=== PATIENT | male | born 1990 | race Caucasian/White ===

== ENCOUNTER 2019-07-03 21:50 | Emergency (ER) | payer SELFPAY | END 2019-07-03 22:47 | disposition left against medical advice (07) | LOC: M ED 21:50 | DX: F10.229 Alcohol dependence with intoxication, unspecified (principal) ==

== ENCOUNTER 2019-11-02 00:50 | Emergency (ER) | payer SELFPAY ==
[~2019-11-02] VITALS: Ht 182.9 cm; Wt 81.8 kg
[2019-11-02 01:41] VITALS: BP 136/68
== END 2019-11-02 01:55 | disposition left against medical advice (07) ==
LOC: M ED 00:50
DX: Z04.71 Encounter for examination and observation following alleged adult physical abuse (principal); F10.229 Alcohol dependence with intoxication, unspecified

== ENCOUNTER 2020-03-09 19:04 | Emergency (ER) | payer SELFPAY ==
[~2020-03-09] VITALS: Ht 188 cm; Wt 81.8 kg
[2020-03-09] MEDS ORDERED: HALOPERIDOL 5MG/ML VIAL (J1630 PER 1) IM ONE (19:30)
[2020-03-09] MEDS ORDERED: LORazepam 2 MG/ML VIAL IM ONE (19:30)
[2020-03-09 19:55] LABS: HEMATOCRIT 44.1 % (42.0-52.0); HEMOGLOBIN 15.5 g/dl (13.5-17.5); MEAN CORPUSCULAR HEMOGLOBIN 30.5 pg (27.0-33.0); MEAN CORPUSCULAR HGB CONC 35.1 g/dl (32.0-36.5); MEAN CORPUSCULAR VOLUME 86.6 fl (80.0-96.0); PLATELET COUNT, AUTOMATED 283 10^3/uL (150-450); RED BLOOD COUNT 5.09 10^6/uL (4.30-6.10)
[2020-03-09 20:40] LABS: ACETAMINOPHEN LEVEL < 2.0 UG/ML (10.0-30.0); ALBUMIN 4.4 GM/DL (3.2-5.2); ALT/SGPT 44 U/L (12-78); BILIRUBIN,DIRECT 0.2 MG/DL (0.0-0.2); BILIRUBIN,TOTAL 0.5 MG/DL (0.2-1.0); BLOOD UREA NITROGEN 11 MG/DL (7-18); CALCIUM LEVEL 8.2 MG/DL (8.5-10.1); CARBON DIOXIDE LEVEL 24 MEQ/L (21-32); CHLORIDE LEVEL 111 MEQ/L (98-107); CREATININE FOR GFR 1.14 MG/DL (0.70-1.30); ETHYL ALCOHOL (ETHANOL) 0.388 % (0.000-0.010); GLOMERULAR FILTRATION RATE > 60.0 (>60); GLUCOSE, FASTING 97 MG/DL (70-100); POTASSIUM SERUM 4.5 MEQ/L (3.5-5.1); SALICYLATE LEVEL 3.5 MG/DL (5.0-30.0); SODIUM LEVEL 146 MEQ/L (136-145); THYROID STIMULATING HORMONE 0.418 uIU/ML (0.358-3.740); TOTAL PROTEIN 8.1 GM/DL (6.4-8.2)
[2020-03-09] MEDS ORDERED: NICOTINE 21MG/24HR 1 EA TRANSDERMAL TD ONE (21:00)
[2020-03-09 21:21] LABS: AMPHETAMINES LEVEL URINE NEGATIVE (NEGATIVE); BARBITURATES URINE NEGATIVE (NEGATIVE); BENZODIAZEPINES URINE NEGATIVE (NEGATIVE); CANNABINOIDS URINE NEGATIVE (NEGATIVE); COCAINE METABOLITE URINE NEGATIVE (NEGATIVE); METHADONE URINE NEGATIVE (NEGATIVE); OPIATES URINE NEGATIVE (NEGATIVE); PHENCYCLIDINE URINE NEGATIVE (NEGATIVE)
[2020-03-10 08:44] VITALS: BP 121/91
== END 2020-03-10 08:44 | disposition home or self-care (01) ==
LOC: M ED 19:04
DX: F10.229 Alcohol dependence with intoxication, unspecified (principal); Y90.1 Blood alcohol level of 20-39 mg/100 ml
CPT/HCPCS: 36415; 80048; 80076; 80307; 84443; 85027; 96372; 99285; G0480; J1630; J2060

== ENCOUNTER 2020-07-25 22:35 | Emergency (ER) | payer MEDICAID, OTHER, SELFPAY ==
[~2020-07-25] VITALS: Ht 182.9 cm; Wt 79.5 kg
[2020-07-25] MEDS ORDERED: HALOPERIDOL 5MG/ML VIAL (J1630 PER 1) As Ordered ONE (23:01)
[2020-07-25] MEDS ORDERED: LORazepam 2 MG/ML VIAL As Ordered ONE (23:02)
[2020-07-25] MEDS ORDERED: diphenhydrAMINE 50MG/ML VIAL (J1200) As Ordered ONE (23:02)
[2020-07-25 23:23] LABS: AMPHETAMINES LEVEL URINE NEGATIVE (NEGATIVE); BARBITURATES URINE NEGATIVE (NEGATIVE); BENZODIAZEPINES URINE NEGATIVE (NEGATIVE); CANNABINOIDS URINE NEGATIVE (NEGATIVE); COCAINE METABOLITE URINE NEGATIVE (NEGATIVE); METHADONE URINE NEGATIVE (NEGATIVE); OPIATES URINE NEGATIVE (NEGATIVE); PHENCYCLIDINE URINE NEGATIVE (NEGATIVE)
[2020-07-25] MEDS ORDERED: HALOPERIDOL 5MG/ML VIAL (J1630 PER 1) IM ONE (23:30)
[2020-07-25] MEDS ORDERED: LORazepam 2 MG/ML VIAL IM ONE (23:30)
[2020-07-25] MEDS ORDERED: diphenhydrAMINE 50MG/ML VIAL (J1200) IM ONE (23:30)
[2020-07-25 23:37] LABS: BASO # 0.1 10^3/uL (0.0-0.2); BASO % 0.9 % (0.0-1.0); EOS # 0.2 10^3/uL (0.0-0.5); EOS % 1.5 % (0.0-3.0); HEMATOCRIT 47.6 % (42.0-52.0); HEMOGLOBIN 15.6 g/dl (13.5-17.5); LYMPH # 2.6 10^3/uL (1.5-5.0); LYMPH % 22.2 % (24.0-44.0); MEAN CORPUSCULAR HEMOGLOBIN 29.3 pg (27.0-33.0); MEAN CORPUSCULAR HGB CONC 32.8 g/dl (32.0-36.5); MEAN CORPUSCULAR VOLUME 89.3 fl (80.0-96.0); MONO # 0.4 10^3/uL (0.0-0.8); MONO % 3.2 % (0.0-5.0); NEUTROPHILS # 8.3 10^3/uL (1.5-8.5); NEUTROPHILS % 71.1 % (36.0-66.0); PLATELET COUNT, AUTOMATED 298 10^3/uL (150-450); RED BLOOD COUNT 5.33 10^6/uL (4.30-6.10); WHITE BLOOD COUNT 11.7 10^3/uL (4.0-10.0)
[2020-07-26 00:11] LABS: ALT/SGPT 24 U/L (12-78); BILIRUBIN,DIRECT 0.1 MG/DL (0.0-0.2); BILIRUBIN,TOTAL 0.2 MG/DL (0.2-1.0); BLOOD UREA NITROGEN 11 MG/DL (7-18); CALCIUM LEVEL 9.2 MG/DL (8.5-10.1); CARBON DIOXIDE LEVEL 29 MEQ/L (21-32); CHLORIDE LEVEL 108 MEQ/L (98-107); CREATININE FOR GFR 0.94 MG/DL (0.70-1.30); GLOMERULAR FILTRATION RATE > 60.0 (>60); GLUCOSE, FASTING 99 MG/DL (70-100); SODIUM LEVEL 143 MEQ/L (136-145); TOTAL PROTEIN 7.6 GM/DL (6.4-8.2)
[2020-07-26 00:29] LABS: ETHYL ALCOHOL (ETHANOL) 0.331 % (0.000-0.010)
--- NOTE | 2020-07-26 01:41 | REPVR ---
PROCEDURE INFORMATION: Exam: CT Head Without Contrast Exam date and time: 07/26/2020 1:06 AM Age: 30 years old Clinical indication: Rule out bleeding TECHNIQUE: Imaging protocol: Computed tomography of the head without contrast. Radiation optimization: All CT scans at this facility use at least one of these dose optimization techniques: automated exposure control; mA and/or kV adjustment per patient size (includes targeted exams where dose is matched to clinical indication); or iterative reconstruction. COMPARISON: No relevant prior studies available. FINDINGS: Limitations: The inferior aspect of the brain was not fully imaged and motion artifact degrades the image quality. Brain: There is a small acute subdural hematoma along the left temporal region, which measures up to 3 mm in thickness (images 3-4 of the axial series 201 and images 18-22 of the coronal series 203). There is a small acute left parafalcine subdural hematoma along the anterior falx, which measures 2 mm in thickness (image 4 of the axial series 201). There are subtle acute hemorrhagic contusions of the anterior portions of both frontal lobes (images 2-6 of the axial series 201). There is subtle high density within the cortical sulci of the right frontal lobe, which is compatible with a trace amount of acute subarachnoid hemorrhage (image 12 of the axial series 201). There is no mass effect, midline shift, or occult herniation. Cerebral ventricles: No ventriculomegaly. Bones/joints: No skull fracture is identified. The inferior aspect of the skull was not imaged. Paranasal sinuses: The imaged portion of the frontal sinuses are clear. The sinuses were not fully imaged. Mastoid air cells: Not imaged. Soft tissues: There is a small subgaleal hematoma along the posterosuperior aspect of the head (image 30 of the coronal series 203). IMPRESSION: 1. Small acute subdural hematoma along the left temporal region, which measures up to 3 mm in thickness. 2. Small acute left parafalcine subdural hematoma along the anterior falx, which measures 2 mm in thickness. 3. Mild acute hemorrhagic contusions of the anterior portions of both frontal lobes and a trace amount of acute subarachnoid hemorrhage in the cortical sulci of the right frontal lobe. 4. Small subgaleal hematoma along the posterosuperior aspect of the head Electronically signed by: Gilbert Napoles On 07/26/2020 01:41:10 AM
[2020-07-26 03:30] VITALS: BP 87/51
[2020-07-26] MEDS ORDERED: NS 1,000 ML IV ONE (04:00)
--- NOTE | 2020-07-26 22:44 | ECGEPIP ---
[facility] Test Date: 2020-07-25 Pat Name: MURALI LANTIGUA Department: Room: - Gender: Male Windows Server Support Technician: checo : 1990 Requested By: AG DAS Order Number: [id number] Reading MD: Madhav Gee Measurements Intervals [place] Rate: 108 P: 65 ID: [id number] QRS: 55 QRSD: 94 T: 36 QT: 327 QTc: 440 Interpretive Statements SINUS TACHYCARDIA POSSIBLE LEFT ATRIAL ENLARGEMENT ABNORMAL RHYTHM ECG No prior tracing in the system Electronically Signed on 07-26-2020 22:43:49 EDT by Madhav Gee
== END 2020-07-26 04:21 | disposition short-term general hospital (02) ==
LOC: M ED 22:35
DX: S06.5X9A Traumatic subdural hemorrhage with loss of consciousness of unspecified duration, initial encounter (principal); S06.6X9A Traumatic subarachnoid hemorrhage with loss of consciousness of unspecified duration, initial encounter; Y92.9 Unspecified place or not applicable; Y93.9 Activity, unspecified; Y99.9 Unspecified external cause status; R00.0 Tachycardia, unspecified; F10.120 Alcohol abuse with intoxication, uncomplicated
CPT/HCPCS: 70450; 80048; 80076; 80307; 85025; 93005; 96372; 99285; G0480; J1200; J1630; J2060

== ENCOUNTER 2020-08-14 02:09 | Emergency (ER) | payer MEDICAID, SELFPAY ==
[~2020-08-14] VITALS: Ht 182.9 cm; Wt 78.2 kg
[2020-08-14] MEDS ORDERED: HALOPERIDOL 5MG/ML VIAL (J1630 PER 1) As Ordered ONE (02:25)
[2020-08-14] MEDS ORDERED: LORazepam 2 MG/ML VIAL As Ordered ONE (02:26)
[2020-08-14] MEDS ORDERED: diphenhydrAMINE 50MG/ML VIAL (J1200) As Ordered ONE (02:26)
[2020-08-14] MEDS ORDERED: HALOPERIDOL 5MG/ML VIAL (J1630 PER 1) IM ONE (02:30)
[2020-08-14] MEDS ORDERED: diphenhydrAMINE 50MG/ML VIAL (J1200) IM ONE (02:30)
[2020-08-14] MEDS ORDERED: LORazepam 2 MG/ML VIAL IM ONE (02:30)
[2020-08-14 03:16] LABS: HEMATOCRIT 47.9 % (42.0-52.0); HEMOGLOBIN 15.9 g/dl (13.5-17.5); MEAN CORPUSCULAR HEMOGLOBIN 28.9 pg (27.0-33.0); MEAN CORPUSCULAR HGB CONC 33.2 g/dl (32.0-36.5); MEAN CORPUSCULAR VOLUME 86.9 fl (80.0-96.0); PLATELET COUNT, AUTOMATED 246 10^3/uL (150-450); RED BLOOD COUNT 5.51 10^6/uL (4.30-6.10)
[2020-08-14] MEDS ORDERED: NS 1,000 ML IV ONE ×2 (03:30→05:15)
[2020-08-14 03:50] LABS: ALBUMIN 4.5 GM/DL (3.2-5.2); ALT/SGPT 29 U/L (12-78); BILIRUBIN,TOTAL 0.4 MG/DL (0.2-1.0); BLOOD UREA NITROGEN 7 MG/DL (7-18); CALCIUM LEVEL 8.7 MG/DL (8.5-10.1); CARBON DIOXIDE LEVEL 23 MEQ/L (21-32); CHLORIDE LEVEL 107 MEQ/L (98-107); CREATININE FOR GFR 0.81 MG/DL (0.70-1.30); ETHYL ALCOHOL (ETHANOL) 0.403 % (0.000-0.010); GLOMERULAR FILTRATION RATE > 60.0 (>60); GLUCOSE, FASTING 102 MG/DL (70-100); POTASSIUM SERUM 3.6 MEQ/L (3.5-5.1); SODIUM LEVEL 142 MEQ/L (136-145); TOTAL PROTEIN 8.1 GM/DL (6.4-8.2)
--- NOTE | 2020-08-14 04:26 | REPVR ---
PROCEDURE INFORMATION: Exam: CT Head Without Contrast Exam date and time: 08/14/2020 2:25 AM Age: 30 years old Clinical indication: Altered mental status/memory loss; Confusion or disorientation; Additional info: Altered mental, h/o intracranial bleed this month TECHNIQUE: Imaging protocol: Computed tomography of the head without contrast. Radiation optimization: All CT scans at this facility use at least one of these dose optimization techniques: automated exposure control; mA and/or kV adjustment per patient size (includes targeted exams where dose is matched to clinical indication); or iterative reconstruction. COMPARISON: CT Head without contrast 07/26/2020 12:44 AM FINDINGS: Brain: Normal. No hemorrhage. Unremarkable white matter. No mass effect. Cerebral ventricles: No ventriculomegaly. Bones/joints: Unremarkable. No acute fracture. Paranasal sinuses: Visualized sinuses are unremarkable. No fluid levels. Mastoid air cells: Visualized mastoid air cells are well aerated. Soft tissues: Unremarkable. IMPRESSION: Negative noncontrast head CT with resolution of hemorrhage since 07/26/2020. Electronically signed by: Guicho Crawford On 08/14/2020 04:26:25 AM
[2020-08-14 07:09] LABS: ACETAMINOPHEN LEVEL < 2.0 UG/ML (10.0-30.0); SALICYLATE LEVEL 4.7 MG/DL (5.0-30.0); THYROID STIMULATING HORMONE 0.484 uIU/ML (0.358-3.740)
[2020-08-14] MEDS ORDERED: FOLIC ACID 1 MG TAB PO SCH (09:00)
[2020-08-14] MEDS ORDERED: MULTIVITAMINS/MINERALS THERAP 1 TAB PO SCH (09:00)
[2020-08-14 09:50] LABS: AMPHETAMINES URINE REFLEX NEGATIVE (NEGATIVE); BARBITURATES URINE REFLEX NEGATIVE (NEGATIVE); BENZODIAZEPINES URINE REFLEX NEGATIVE (NEGATIVE); COCAINE METABOLITE URINE REFLE NEGATIVE (NEGATIVE); METHADONE URINE REFLEX NEGATIVE (NEGATIVE); OPIATES URINE REFLEX NEGATIVE (NEGATIVE); PHENCYCLIDINE URINE REFLEX NEGATIVE (NEGATIVE)
[2020-08-14 10:48] LABS: CANNABINOIDS URINE REFLEX PENDING CONFIRMATION (NEGATIVE)
[2020-08-14] MEDS ORDERED: LORazepam 2 MG TAB PO PRN (11:15)
[2020-08-14] MEDS: THIAMINE 100 MG TAB PO SCH ×2 (13:31→20:59)
[2020-08-15 01:20] VITALS: BP 162/82
--- NOTE | 2020-08-15 21:47 | ECGEPIP ---
[facility] - ED Test Date: 2020-08-14 Pat Name: MURALI LANTIGUA Department: Room: - Gender: Male Human Resources Assistant: : 1990 Requested By: ANTON DAS Order Number: [id number] Reading MD: Anton Kelly Measurements Intervals [place] Rate: 91 P: 76 MA: 120 QRS: 69 QRSD: 94 T: 63 QT: 350 QTc: 431 Interpretive Statements SINUS RHYTHM WITH MARKED SINUS ARRHYTHMIA POSSIBLE LEFT ATRIAL ENLARGEMENT INCOMPLETE RIGHT BUNDLE BRANCH BLOCK SIMILAR TO 07/25/20 Electronically Signed on 08-15-2020 21:47:16 EDT by Anton Kelly
[2020-08-18 01:21] LABS: Cannabinoid Positive (.); GC Carboxy THC 86 ng/mL (Cutoff=10)
== END 2020-08-15 01:23 | disposition short-term general hospital (02) ==
LOC: M ED 02:09
DX: R45.850 Homicidal ideations (principal); R45.851 Suicidal ideations; F10.10 Alcohol abuse, uncomplicated; Y90.2 Blood alcohol level of 40-59 mg/100 ml
CPT/HCPCS: 70450; 80053; 80307; 84443; 85027; 93005; 96361; 96372; 99285; G0480; J1200; J1630; J2060; U0002

== ENCOUNTER 2020-10-29 09:01 | Inpatient (IN) | payer MEDICAID, OTHER ==
[~2020-10-29] VITALS: Ht 182.9 cm; Wt 79.5 kg
[2020-10-29 10:12] LABS: BASO # 0.1 10^3/uL (0.0-0.2); BASO % 0.8 % (0.0-1.0); EOS # 0.1 10^3/uL (0.0-0.5); EOS % 0.7 % (0.0-3.0); HEMATOCRIT 46.4 % (42.0-52.0); HEMOGLOBIN 15.5 g/dl (13.5-17.5); LYMPH # 1.9 10^3/uL (1.5-5.0); LYMPH % 16.4 % (24.0-44.0); MEAN CORPUSCULAR HEMOGLOBIN 29.9 pg (27.0-33.0); MEAN CORPUSCULAR HGB CONC 33.4 g/dl (32.0-36.5); MEAN CORPUSCULAR VOLUME 89.6 fl (80.0-96.0); MONO # 1.1 10^3/uL (0.0-0.8); MONO % 9.6 % (0.0-5.0); NEUTROPHILS # 8.5 10^3/uL (1.5-8.5); PLATELET COUNT, AUTOMATED 286 10^3/uL (150-450); RED BLOOD COUNT 5.18 10^6/uL (4.30-6.10); WHITE BLOOD COUNT 11.8 10^3/uL (4.0-10.0)
[2020-10-29 10:52] LABS: AMPHETAMINES LEVEL URINE NEGATIVE (NEGATIVE); BARBITURATES URINE NEGATIVE (NEGATIVE); BENZODIAZEPINES URINE NEGATIVE (NEGATIVE); CANNABINOIDS URINE NEGATIVE (NEGATIVE); COCAINE METABOLITE URINE NEGATIVE (NEGATIVE); METHADONE URINE NEGATIVE (NEGATIVE); OPIATES URINE NEGATIVE (NEGATIVE); PHENCYCLIDINE URINE NEGATIVE (NEGATIVE)
[2020-10-29 11:07] LABS: ACETAMINOPHEN LEVEL < 2.0 UG/ML (10.0-30.0); ALBUMIN 4.5 GM/DL (3.2-5.2); ALT/SGPT 32 U/L (12-78); BILIRUBIN,TOTAL 0.8 MG/DL (0.2-1.0); BLOOD UREA NITROGEN 32 MG/DL (7-18); CALCIUM LEVEL 9.7 MG/DL (8.5-10.1); CARBON DIOXIDE LEVEL 23 MEQ/L (21-32); CHLORIDE LEVEL 101 MEQ/L (98-107); CREATININE FOR GFR 2.17 MG/DL (0.70-1.30); GLOMERULAR FILTRATION RATE 37.9 (>60); GLUCOSE, FASTING 77 MG/DL (70-100); POTASSIUM SERUM 4.3 MEQ/L (3.5-5.1); SALICYLATE LEVEL 4.3 MG/DL (5.0-30.0); SODIUM LEVEL 135 MEQ/L (136-145); TOTAL PROTEIN 8.2 GM/DL (6.4-8.2)
--- NOTE | 2020-10-29 12:02 | REPVR ---
PROCEDURE INFORMATION: Exam: CT Head Without Contrast Exam date and time: 10/29/2020 11:42 AM Age: 30 years old Clinical indication: Psychosis or psychotic disorder; Unspecified TECHNIQUE: Imaging protocol: Computed tomography of the head without contrast. Radiation optimization: All CT scans at this facility use at least one of these dose optimization techniques: automated exposure control; mA and/or kV adjustment per patient size (includes targeted exams where dose is matched to clinical indication); or iterative reconstruction. COMPARISON: CT Head without contrast 08/14/2020 3:57 AM FINDINGS: Brain: Normal. No hemorrhage. Unremarkable white matter. No mass effect. Cerebral ventricles: No ventriculomegaly. Bones/joints: Unremarkable. No acute fracture. Paranasal sinuses: Visualized sinuses are unremarkable. No fluid levels. Mastoid air cells: Visualized mastoid air cells are well aerated. Soft tissues: Unremarkable. IMPRESSION: No acute intracranial abnormality. Electronically signed by: Karina Power On 10/29/2020 12:02:09 PM
[2020-10-29 12:53] LABS: ETHYL ALCOHOL (ETHANOL) < 0.003 % (0.000-0.010)
[2020-10-29] MEDS ORDERED: SULF1TAB93 PO (14:21)
[2020-10-29 15:38] LABS: APPEARANCE, URINE MANUAL HAZY (CLEAR); BILIRUBIN, URINE MANUAL NEGATIVE (NEGATIVE); BLOOD URINE MANUAL TRACE (NEGATIVE); COLOR, URINE MANUAL YELLOW (YELLOW); GLUCOSE, URINE (UA) MANUAL NEGATIVE (NEGATIVE); KETONE, URINE MANUAL 1+ mg/dL (NEGATIVE); LEUKOCYTE ESTERASE, URINE MAN TRACE (NEGATIVE); NITRITE, URINE MANUAL NEGATIVE (NEGATIVE); PROTEIN, URINE MANUAL TRACE mg/dL (NEGATIVE); UROBILINOGEN, URINE MANUAL NORMAL (NORMAL)
[2020-10-29 15:48] LABS: POTASSIUM RANDOM URINE 48.4 MEQ/L
[2020-10-29 16:00] LABS: WBC, URINE TNTC /hpf (0-3)
[2020-10-29 16:01] LABS: BACTERIA, URINE SMALL AMOUNT; MUCUS, URINE LARGE AMOUNT (NEGATIVE); SQUAMOUS EPITHELIAL CELL URINE SMALL AMOUNT /hpf (SMALL AMT); TRANSITIONAL EPI CELLS, URINE SMALL AMOUNT /hpf
[2020-10-29] MEDS ORDERED: BACTRIM 160MG/800MG DS TAB PO ONE (17:15)
[2020-10-29] MEDS ORDERED: DOXYCYCLINE HYCLATE 100MG TABLET PO ONE (17:15)
[2020-10-30] MEDS ORDERED: DOXYCYCLINE HYCLATE 100MG TABLET PO ONE (09:00)
[2020-10-30 14:44] LABS: CHLAMYDIA DNA AMPLIFICATION NEGATIVE (NEGATIVE); GC DNA AMPLIFICATION NEGATIVE (NEGATIVE)
[2020-10-30] MEDS ORDERED: MAALOX 30 ML SUSP *UDC PO PRN (15:00)
[2020-10-30] MEDS ORDERED: ACETAMINOPHEN TAB 650MG DOSE (2X325MG) PO PRN (15:00)
[2020-10-30] MEDS ORDERED: MOM 30ML SUSPENSION UDC PO PRN (15:00)
[2020-10-30] MEDS: traZODone 50 MG TAB PO PRN (23:07)
[2020-10-30] MEDS: OLANZapine ORAL DISINTEGRATING TAB 5MG PO PRN (23:07)
[2020-10-31 00:18] VITALS: BP 118/69
[2020-10-31] MEDS: CLINDAMYCIN 150MG CAPSULE PO SCH ×2 (16:00→21:51)
[2020-10-31 17:12] LABS: HEMATOCRIT 44.5 % (42.0-52.0); HEMOGLOBIN 14.3 g/dl (13.5-17.5); MEAN CORPUSCULAR HGB CONC 32.1 g/dl (32.0-36.5); MEAN CORPUSCULAR VOLUME 93.5 fl (80.0-96.0); PLATELET COUNT, AUTOMATED 225 10^3/uL (150-450); RED BLOOD COUNT 4.76 10^6/uL (4.30-6.10); WHITE BLOOD COUNT 7.7 10^3/uL (4.0-10.0)
--- NOTE | 2020-10-31 17:22 | HPEPDOC ---
[facility] Medical History & Physical Date of Admission Oct 30, 2020 Date of Service: Oct 31, 2020 History and Physical CHIEF COMPLAINT: Psychosis HISTORY OF PRESENT ILLNESS: Mr. Grant is a 30 year old male with history of recreational drug use who is in the inpatient mental health unit for psychosis. He had called the police several times that there was someone trying to break into his house and put him in the bathroom. Police arrived and there was no one trying to break in. Patient was sure he saw people breaking in and doesn't know why the police did not see them. He was brought to the ED for evaluation. Patient's mother believes that he was using drugs again. When I spoke to him, he was feeling well. Denies fever, chills, chest pain, dyspnea, cough, or dysuria. He is COVID positive, but asymptomatic. He does have an abscess on the back right side of neck. He was given Bactrim which helped make it shrink per patient. Labs demonstrate LANCE which is most likely from the Bactrim. It is about the size of a golf ball and tender. It is fluctuant. PAST MEDICAL HISTORY: 1. Recreational drug use 2. Tobacco use PAST SURGICAL HISTORY: Denies any past surgeries SOCIAL HISTORY: Tobacco use: Current smoker, about 10 years, 1/2 ppd to 1 ppd ETOH: Social drinker, last drink a few weeks ago Illicit drug use: Used Ecstasy before being admitted to [facility] FAMILY HISTORY: Denies past medical history in parents. Reports parents are healthy ALLERGIES: Please see below. REVIEW OF SYSTEMS: CONSTITUTIONAL: Denies any fever or chills. Denies lightheadedness or dizziness. ENT: Denies sore throat. RESPIRATORY: Denies shortness of breath. Denies cough. CARDIOVASCULAR: Denies chest pain. GASTROINTESTINAL: Denies abdominal pain. Denies diarrhea. Denies constipation GENITOURINARY: Denies dysuria. CUTANEOUS: Reports abscess in the back of the right neck. Initially a pimple, but grew MUSCULOSKELETAL: Denies muscle weakness. NEUROLOGICAL: Denies paresthesias. PSYCHOLOGICAL: Reports anxiety. HOME MEDICATIONS: Please see below. PHYSICAL EXAMINATION: VITAL SIGNS: Temperature 98.2, pulse 88, respiratory rate 18, blood pressure 120/68, pulse oximetry 97 % on room air. GENERAL: Comfortable, in no apparent distress. HEENT: EOMI, sclera clear. NECK: Back of right neck there is an abscess that is fluctuant. About the size of a golf ball RESPIRATORY: Lungs clear to auscultation bilaterally, no rales, wheeze or rhonchi. CARDIOVASCULAR: Regular rate and rhythm. ABDOMEN: Soft, nontender, no guarding or rebound tenderness. Normal bowel sounds. MUSCLE SKELETAL: Muscle strength 5/5 in all extremities. NEUROLOGICAL: CN 312 grossly intact, no focal deficits noted. PSYCHOLOGICAL: Normal mood and affect LABORATORY DATA: See below. IMAGING: CT head No acute intracranial abnormality. ASSESSMENT and PLAN: 1. Psychosis -Being managed in the inpatient mental health unit 2. Skin abscess on right back neck -Was improving on Bactrim, but stopped due to LANCE -Will order ultrasound abscess drain and culture and gram stain -Will start patient on clindamycin 3. LANCE -Most likely AIN from Bactrim -Discontinued Bactrim -Encourage PO intake of fluids and recheck BMP 4. COVID infection -No symptoms -Will check inflammatory markers tomorrow morning with routine labs Vital Signs Vital Signs Date Time Temp Pulse Resp B/P (MAP) Pulse Ox O2 Delivery O2 Flow Rate FiO2 10/31/20 09:54 Room Air 10/31/20 00:18 98.7 123 16 118/69 (85) 10/30/20 20:31 97 Laboratory Data Microbiology Microbiology 10/29/20 Respiratory Virus Panel (PCR) (LIZZIE) - Final, Complete SARS-CoV-2 (COVID 19) Home Medications Scheduled Sulfamethoxazole/Trimethoprim (Sulfamethoxazole-Tmp Ds Tablet) 1 Each Tablet, 1 TAB PO BID FILLED 10/26/20 FOR 10 DAYS Allergies Coded Allergies: No Known Allergies (Unverified , 07/03/19) A-FIB/CHADSVASC A-FIB History Current/History of A-Fib/PAF?: No EDWIN BEARD DO Oct 31, 2020 17:21
[2020-10-31 17:45] LABS: BLOOD UREA NITROGEN 26 MG/DL (7-18); CALCIUM LEVEL 8.8 MG/DL (8.5-10.1); CARBON DIOXIDE LEVEL 29 MEQ/L (21-32); CHLORIDE LEVEL 106 MEQ/L (98-107); CREATININE FOR GFR 1.01 MG/DL (0.70-1.30); GLOMERULAR FILTRATION RATE > 60.0 (>60); GLUCOSE, FASTING 95 MG/DL (70-100); POTASSIUM SERUM 4.9 MEQ/L (3.5-5.1); SODIUM LEVEL 140 MEQ/L (136-145)
[2020-10-31 18:13] VITALS: BP 120/71
[2020-10-31] MEDS: traZODone 50 MG TAB PO PRN (21:50)
[2020-10-31] MEDS: OLANZapine ORAL DISINTEGRATING TAB 5MG PO PRN (21:51)
[2020-10-31] MEDS: LACTOBACILLUS ACIDOPHILUS CAP (BACID) PO SCH (21:53)
[2020-10-31 22:00] VITALS: BP 133/72
[2020-11-01] MEDS: LACTOBACILLUS ACIDOPHILUS CAP (BACID) PO SCH ×2 (09:41→17:09)
[2020-11-01] MEDS: CLINDAMYCIN 150MG CAPSULE PO SCH ×3 (09:41→21:12)
--- NOTE | 2020-11-01 15:45 | WAPSY-INT ---
[facility] PSYCH INITIAL ASSESSMENT DATE OF ADMISSION: 10/30/2020 VITAL SIGNS: Blood pressure 120/68, pulse 88, temperature 98.2. This is a video assessment. He has been admitted to the inpatient psychiatry unit. He is waiting to go upstairs to the unit. I saw him when he was in the ER. CHIEF COMPLAINT: Feels sick. SUBJECTIVE: He is 30 years old, lives with his mother. Has no children as far as I am aware. He says has been doing okay and that things hit bottom here, is not quite sure why. Says has been doing well. The history, when he was first assessed, indicates he was brought by the police. He was convinced his house was being locked and that he was locked in the room by strangers. He suggested the police did not believe him and they brought him here. He had apparently called the police and said that occasions within the last 24 hours or so, informing them that someone had broken into the house. Police had responded. He remained adamant that this was taking place. His mother had suggested there was no one there. Also suggested that police did not believe that there was anyone who had broken in and placed him in the bathroom. He suggested he knew that there were people there and was puzzled by the police, who did not believe him. Denies any drug use, but later suggested if he had used drugs, could easily. Unclear what, possibly Candice, possibly ecstasy. Acknowledges he did "the other day," and he was brought to the ER. Has had a prior history of substance abuse, details unknown. Apparently his approximately a year and a half ago from a drug overdose. ER report suggests mother believes the patient has been using drugs again, does not think that he has been drinking. He has been seen peeking out the windows during the night, looking in her bedroom door and a couple of weeks ago had called the police with similar concerns. He, at some point, had been referred to [facility], was unclear if he had gone over there or not. Was seen in the ER last July, alcohol misuse. He had called the police at that time indicating he was going to shoot the place up and everyone there. He was found to be using alcohol after a disagreement with a girlfriend. He was transferred to [facility] in [place] at that time. SUBSTANCE ABUSE HISTORY: As indicated above. MEDICAL HISTORY: Unclear, with no acute medical issues. He is COVID positive. SOCIAL HISTORY: Lives with his mother. Apparently, his a year and a half ago. MENTAL STATUS EXAMINATION: Neat, but guarded. No agitation. No psychomotor retardation. Answers questions briefly, logically, coherently. Affect restricted in range, mostly active. Denies suicidal thoughts or intents. No homicidal ideas or intents. Has been paranoid, deluded. Alert, Oriented. Does not appear to be internally preoccupied. Judgment, insight are poor. ASSESSMENT: 1. Unspecified psychotic disorder. 2. Consider drug-induced psychotic disorder. 3. History of alcohol misuse. 4. Non adherence to treatment recommendations. 5. Consider other primary psychotic disorder. Has been paranoid lately, the last couple of weeks or so, possibly secondary to drug use. Has history of alcohol use, nonadherent to treatment recommendations. He is COVID positive and one needs to consider the possibility that there is psychosis secondary to it, though unclear. PLAN: He is admitted to inpatient psychiatry unit, placed on relevant precautions. We will look at obtaining collateral information. He will be seen by the department of medicine hospitalist. Will start him on an antipsychotic if indicated, particularly after observation. He is to be discharged with followup once he is stable. Will need referral to a substance abuse facility. I anticipate a five to seven day stay. We will be following the COVID protocol. Assessment took 30 minutes. TAWNY
--- NOTE | 2020-11-01 16:26 | WAPSY-FUP ---
[facility] PSYCH FOLLOWUP ASSESSMENT DATE OF ADMISSION: 10/30/2020 VITALS SIGNS: Blood pressure 118/69, pulse 123, temperature 98.7. CHIEF COMPLAINT: Says feels okay. SUBJECTIVE: Seen for followup in the presence of staff. I had seen him initially when he was in the emergency room via video. There are concerns regarding COVID. He is COVID positive. He is seen for followup on video as well. Says has been okay and that he slept. Does not offer much else. Says mood is good, as is appetite. Denies any suicidal thoughts or intents. Says is not sure why he was brought to hospital, and that things have been okay with him. Says has not had any contact with his mother. Also indicates she may be busy, including when we asked if we could talk to her to obtain collateral information. MENTAL STATUS EXAMINATION: He is neat. He is guarded. No overt agitation. Displays mild irritability. No psychomotor retardation. Answers questions briefly, logically, coherently. Denies suicidal thoughts or intents or homicidal ideas or intents. Does not appear internally preoccupied. At present, no overt delusions elicited. Cognition grossly intact. Judgment and insight remain compromised. ASSESSMENT: 1. Unspecified psychotic disorder. 2. Consider substance-induced psychotic disorder. Has poor insight. There has been a history of his being paranoid recently, calling the police on several occasions, convinced people had broken into his house. He does not confirm nor deny that, but does not acknowledge these difficulties, either. Judgment and insight remain poor, and this compromises his ability to maintain his safety. PLAN: Continue current care and observations. I would suggest offering him anti-agitation medications, says does not wish to be on medicine, he declines that. He does say he took it last night for sleep and it made him drowsy. He is also taking olanzapine at this time as well. Attempted obtaining collateral information from patient's mother should the patient be willing. The longer he away from his last drug use, the more likely the psychosis may clear. This may require a bit of time. Lashed out at being hospitalized as discussed. He does not accept it. Further recommendations will be made depending on the clinical picture. Will hold off on prescribing scheduled antipsychotic.
[2020-11-01] MEDS: traZODone 50 MG TAB PO PRN (21:21)
[2020-11-01] MEDS: OLANZapine ORAL DISINTEGRATING TAB 5MG PO PRN (21:21)
[2020-11-02 07:11] VITALS: BP 117/65
[2020-11-02] MEDS: LACTOBACILLUS ACIDOPHILUS CAP (BACID) PO SCH (08:44)
[2020-11-02] MEDS: CLINDAMYCIN 150MG CAPSULE PO SCH ×2 (08:45→16:24)
--- NOTE | 2020-11-02 12:57 | WAPSY-FUP ---
[facility] PSYCH FOLLOWUP ASSESSMENT DATE OF ADMISSION: 10/30/2020 This is a video assessment. CHIEF COMPLAINT: He says he is okay. SUBJECTIVE: Seen for follow up. Indicates he is okay and that the night went well. He has been eating a bit. Feels good, but does not like the fact that he is in hospital. Says remembers the police coming over when they did and that they had come over a little while prior to that as well, says it was for "the same reason," but did not elaborate. Denies wanting to hurt himself. Acknowledges using drugs. He did not go into details but did suggest that it was not alcohol, no benzodiazepines. Says he does not have a drug of choice as such, but implies most were related to amphetamines. Denies ever having used any intravenous drugs. He also indicates that he had been free of drugs for about five years or so, relapsed after about a month or so after his , a year and a half ago. Acknowledges that it was partly grieving for her. His mother has had concerns regarding his drug use, with various people being around the house and being brought there by him and using. He did not expand on that or even acknowledge that. Says he has been looking for an outpatient drug use facility, says had called the [facility] office about it over the last week or two. Also says is prepared to seek outpatient care, but would not be willing to go for inpatient rehabilitation at this point. MENTAL STATUS EXAMINATION: He is neat. He is guarded, but less so than he has been in the last couple of days. No agitation. No psychomotor retardation. Improved eye contact. Affect restricted with little reactivity, but does not appear as intense it has in the last couple of days. No evidence of any auditory or visual hallucinations, does not appear to be internally preoccupied. Unclear if any delusions, but none that appear overtly. Judgment and insight remain compromised, but possibly a bit improved. ASSESSMENT: 1. Substance-induced psychotic disorder. 2. Methamphetamine use disorder, most likely. A bit more amenable to conversation, less guarded, less paranoid and his judgment has improved, but remains questionable. The same goes with insight. It is quite possible the psychosis is mostly drug induced, amphetamine induced. It is also of note that he is COVID positive. COVID related psychosis may be a possibility, it cannot be completely ruled out. PLAN: Continue current care, observations. Would hold off on starting him on a scheduled psychotropic, given these concerns. May benefit from medication as needed. I would recommend that the patient be considered for rehabilitation, substance use, and at present, he agrees to considering outpatient rehabilitation. May require inpatient rehabilitation. That would depend on the clinical picture. He will be seeing the assigned clinician tomorrow, as well as the planner intern so discharge planning can be started, with an aim of his being referred to a substance abuse facility. His COVID-related status, the infection, also needs to be taken into consideration. It is also preferable he see a psychiatrist upon discharge. He is aware that he is going to be here for at least the next day or so. Further recommendations will be made depending on the clinical picture.
[2020-11-02] MEDS ORDERED: CLIN150C15 PO (13:49)
[2020-11-02] MEDS ORDERED: RISATAB3 PO (13:49)
--- NOTE | 2020-11-04 11:57 | MHDS ---
FORMER[facility] DISCHARGE SUMMARY DATE OF ADMISSION: 10/30/2020 at 1457 DATE OF DISCHARGE: 11/02/2020 at 1419 PATIENT STATUS: Admitted inpatient to inpatient mental health. PROVIDER: Amrita Quezada, nurse practitioner of psychiatric ATTENDING PSYCHIATRIC PHYSICIAN: Jessica Vega DISCHARGE DIAGNOSES: 1. Unspecified schizophrenia and other psychotic disorders. 2. Rule out drug-induced psychotic disorder. 3. History of alcohol use disorder. 4. No adherence of substance abuse treatment and outpatient mental health treatment. REASON FOR ADMISSION: Patient is a single, unemployed, domicile male who was admitted to inpatient mental health unit on a 9.39 legal status after he had called the police numerous times reporting that someone was breaking into his home. He had apparently called the police and said that within the past 24 hours that someone was continuing breaking into his home. The police had responded numerous times. He was adamant that this was taking place. His mother had suggested that there was no one there and that the police did not believe him when he was presenting all of the evidence that people were trying to break into his home. He states that he does not feel safe at home, and he did admit to prior substance abuse. According to his mother, she believes that the patient is engaged in doing drugs again. She states that the patient lives in the same home as she does. She does not believe that he was drinking that night that he came in. She states that he was peaking out of the windows that night, looking into her bedroom door at times. A couple weeks ago he had called the police with the same complaint that somebody was trying to break into the house. He and his mother both report that his 1-1/2 years ago from a recreational drug overdose. Mom reports that patient was referred to [facility] but has not followed up with them or anyone else. CONSULTANTS INVOLVED: See medical history and physical by hospitalist. TREATMENT AND PROGRESS ON THE UNIT: Patient was admitted to inpatient mental health on a 9.39 legal status. He was afforded the following treatment modalities: 1. Individual therapy. 2. Group therapy. 3. Medications management. 4. Milieu therapy. 5. Safe environment. HOSPITAL COURSE: Patient admitted to inpatient mental health. Was observed for any continued psychiatric and psychotic symptoms. He was COVID positive and given a private room. He was educated on the need for strict policies regarding his care, for example, staff wearing personal protective equipment, face masks, multani, and gloves. DISCHARGE ASSESSMENT: In today's interview, patient is requesting to be discharged to home. He denies depression, suicidal ideation, homicidal ideation, and denies psychotic symptoms. He is not observed with any depression, anxiety, any psychotic symptoms, for example, paranoia, flight of ideas, francisco javier, delusions, bizarre thinking, grandiosity, or impaired thinking. At this time he does not meet criteria to be admitted to an involuntary status, and he refused a voluntary admission. He states that he was using Candice, and that he no longer believes that people were trying to break into his house. MENTAL STATUS EXAMINATION: On discharge, patient is a 30-year-old single, unemployed, domicile male, brought in by police after he made numerous calls to them reporting people breaking into his house. He admits today he was using MDMA/Candice. He is dressed appropriately in hospital scrubs. His hair is disheveled. His hygiene and grooming are fair. Build is thin. His demeanor is guarded. Eye contact is intermittent. His activity is within normal limits. Behavior is cooperative. Speech is regular rate, rhythm, and volume. His mood was somewhat dismissive but mostly euthymic. Affect is flat. Thought process is logical and linear. Thought content: He denies depression, suicidal ideation, homicidal ideation, auditory, visual, or tactile hallucinations. Denies paranoia. Mildly guarded. He is not observed with any aggression, not observed to be responding to internal stimuli. He has no impairment of his cognition. His intelligence is average. He is alert, awake, and oriented times three. His insight and judgment are fair. Again, he is not observed with and denies psychosis. DISCHARGE MEDICATIONS: See medication reconciliation. PLAN AND FOLLOWUP ARRANGEMENTS: [facility]. The amount of time spent in the coordination of care for this patient was approximately 25 minutes. TAWNY
== END 2020-11-02 16:54 | disposition home or self-care (01) | DRG 750 ==
LOC: M ED 09:01 → EEVIPCON 10-30 14:57 → M ED INP 10-30 14:57 → M PSY 10-30 20:35
PROVIDERS: ADMIT Psychiatry & Neurology Psychiatry; ATTEND Psychiatry & Neurology Psychiatry
DX: F20.9 Schizophrenia, unspecified (principal); U07.1 COVID-19; N17.9 Acute kidney failure, unspecified; L02.11 Cutaneous abscess of neck; Z91.19 Patient's noncompliance with other medical treatment and regimen; F10.10 Alcohol abuse, uncomplicated; F17.200 Nicotine dependence, unspecified, uncomplicated; T37.0X5A Adverse effect of sulfonamides, initial encounter; F15.159 Other stimulant abuse with stimulant-induced psychotic disorder, unspecified; Z63.4 Disappearance and death of family member

== ENCOUNTER 2020-12-03 21:06 | Inpatient (IN) | payer OTHER ==
[~2020-12-03] VITALS: Ht 185.4 cm; Wt 72.9 kg
[~2020-12-03 21:06] MED LIST: CLIN150C15 PO; RISATAB3 PO; SULF1TAB93 PO
[2020-12-03] MEDS ORDERED: LIDOCAINE W/EPINEPHRINE 1% 20ML VIAL SC ONE (21:15)
[2020-12-03] MEDS ORDERED: MIDAZOLAM 5MG/ML 1ML VIAL (J2250 PER 1MG) IM ONE ×2 (21:45→22:45)
[2020-12-03 22:42] LABS: AMPHETAMINES LEVEL URINE NEGATIVE (NEGATIVE); BARBITURATES URINE NEGATIVE (NEGATIVE); BENZODIAZEPINES URINE NEGATIVE (NEGATIVE); CANNABINOIDS URINE POSITIVE (NEGATIVE); COCAINE METABOLITE URINE NEGATIVE (NEGATIVE); METHADONE URINE NEGATIVE (NEGATIVE); OPIATES URINE NEGATIVE (NEGATIVE); PHENCYCLIDINE URINE NEGATIVE (NEGATIVE)
[2020-12-03] MEDS ORDERED: MIDAZOLAM INJ 2MG/2ML VIAL (J2250 PER 1MG) IV STA (23:53)
[2020-12-04] MEDS ORDERED: NS 1,000 ML IV ONE
[2020-12-04 00:28] LABS: HEMATOCRIT 42.5 % (42.0-52.0); MEAN CORPUSCULAR HEMOGLOBIN 29.4 pg (27.0-33.0); MEAN CORPUSCULAR HGB CONC 32.9 g/dl (32.0-36.5); MEAN CORPUSCULAR VOLUME 89.3 fl (80.0-96.0); PLATELET COUNT, AUTOMATED 235 10^3/uL (150-450); RED BLOOD COUNT 4.76 10^6/uL (4.30-6.10); WHITE BLOOD COUNT 8.4 10^3/uL (4.0-10.0)
[2020-12-04] MEDS ORDERED: LORazepam 2 MG/ML VIAL IM ONE (00:30)
[2020-12-04] MEDS ORDERED: diphenhydrAMINE 50MG/ML VIAL (J1200) IM ONE (00:30)
[2020-12-04] MEDS ORDERED: HALOPERIDOL 5MG/ML VIAL (J1630 PER 1) IM ONE (00:30)
[2020-12-04 00:40] LABS: ACETAMINOPHEN LEVEL < 2.0 UG/ML (10.0-30.0); ALBUMIN 4.3 GM/DL (3.2-5.2); ALT/SGPT 31 U/L (12-78); BILIRUBIN,DIRECT 0.1 MG/DL (0.0-0.2); BILIRUBIN,TOTAL 0.5 MG/DL (0.2-1.0); BLOOD UREA NITROGEN 16 MG/DL (7-18); CALCIUM LEVEL 9.3 MG/DL (8.5-10.1); CARBON DIOXIDE LEVEL 28 MEQ/L (21-32); CHLORIDE LEVEL 108 MEQ/L (98-107); CREATININE FOR GFR 1.06 MG/DL (0.70-1.30); ETHYL ALCOHOL (ETHANOL) 0.292 % (0.000-0.010); GLOMERULAR FILTRATION RATE > 60.0 (>60); GLUCOSE, FASTING 87 MG/DL (70-100); POTASSIUM SERUM 4.3 MEQ/L (3.5-5.1); SALICYLATE LEVEL 3.8 MG/DL (5.0-30.0); SODIUM LEVEL 144 MEQ/L (136-145); THYROID STIMULATING HORMONE 0.894 uIU/ML (0.358-3.740); TOTAL PROTEIN 7.5 GM/DL (6.4-8.2)
[2020-12-04] MEDS ORDERED: LORazepam 2 MG TAB PO PRN ×2 (06:30→14:45)
[2020-12-04] MEDS ORDERED: MULTIVITAMINS/MINERALS THERAP 1 TAB PO SCH (09:00)
[2020-12-04] MEDS ORDERED: FOLIC ACID 1 MG TAB PO SCH (09:00)
[2020-12-04] MEDS ORDERED: THIAMINE 100 MG TAB PO SCH (09:00)
[2020-12-04] MEDS ORDERED: MOM 30ML SUSPENSION UDC PO PRN (13:15)
[2020-12-04] MEDS ORDERED: traZODone 50 MG TAB PO PRN (13:15)
[2020-12-04] MEDS ORDERED: MAALOX 30 ML SUSP *UDC PO PRN (13:15)
[2020-12-04 13:45] VITALS: BP 151/79
[2020-12-04] MEDS ORDERED: OLANZapine ORAL DISINTEGRATING TAB 5MG PO PRN (15:00)
[2020-12-04] MEDS: FOLIC ACID 1 MG TAB PO SCH (15:31)
[2020-12-04] MEDS: MULTIVITAMINS/MINERALS THERAP 1 TAB PO SCH (15:31)
--- NOTE | 2020-12-04 16:51 | MHHPEPDOC ---
General Date Of Admission: Dec 04, 2020 Legal Status: 9.39 Chief Complaint I cut myself History of Present Illness HISTORY OF THE PRESENT ILLNESS: Patient is a 30 -year-old , male, who was admitted here in October following drug use in which she became paranoid, psychotic. Last night he was drinking and playing with a knife and states he cut himself by flipping the knife and cutting both hands and wrist. He is single and lives with his mother for over a year. 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 He has had some college education. His father lives in [place]. His mother is a nurse in the [employer] system. He states the police said I was trying to hurt myself. The mother had called either the ambulance or police and he was brought here. Patient states he used to drink and in fact when he was younger he was in a 18 month program called [facility] in [place] because He was on probation.. He states he has drunk alcohol since his 20s but now only drinks, according to him every once in a while. He has no other histories of hospitalization, except previously mentioned in October here when he was using alfonzo.. He states he has no legal history. 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 His family history is negative. His mother is in her late 40s. The patient has had no significant follow-up treatment while here. Psychiatric Review of Systems Depression (2 or more weeks): denies Haleigh (4 or more days of): denies Psychosis: denies PTSD: denies Anxiety: denies Past Psychiatric History Previous Psychiatric Diagnosis: Substance abuse Previous Psychiatric Admissions: Admission here in October for 2 days. Drug use. Suicide Attempts:, Present injury patient denies suicide attempt. Psychiatric Follow-up:. Apparently, none but patient was in [place] on rehabilitation program for alcohol and he was on probation. Psychiatric medications: None. Past Medical History Medical Problems No medical problems noted Head Injury: No Seizures: No Hospitalizations: No Surgeries: No Addiction History alcohol Social History Childhood: No description of childhood difficulties. Abuse/Trauma: no description of abuse or trauma. Current Living Situation: Lives with mother. Education:, Some college and emergency medical office secretary education. Employment:, construction. Social Support:. Mother. Legal: None. Marital:, Single. Mental Status Examination General Appearance: unkempt Build: average Demeanor: average Eye Contact: average Activity: average Behavior: cooperative Speech: clear Mood: euthymic Affect: full Thought Process: logical/linear Thought Content (Delusions): none reported Thought Content (Other): none reported Thought Content (Aggressive): none reported Perception (Hallucinations): none reported Perception (Other): none reported Cognition (Impairment of): none reported Cognition(Intelligence Est.): average Oriented: Oriented times three Insight: poor Judgment: Poor Psychosis: Denies Diagnoses Self injury associated with substance abuse A-FIB/CHADSVASC A-FIB History Current/History of A-Fib/PAF?: No Current PO Anticoag Therapy: No Age/Risk Factor Scoring CHADSVASC: CHADSVASC Response (Comments) Value Age Risk Factor Age < 65 years old 0 Total 0 Treatment Treatment ordered: NONE Initial Treatment Plan 1. Patient was admitted on a [9.39] status. 2. Complete history was obtained. 3. With patients permission, family will be contacted and database will be expanded. 4. Patients medication regimen will be reviewed and changed accordingly. 5. Patient will be provided with protected environment. 6. Patient will be treated with individual, group, and milieu therapies. 7. Patient will receive supportive psych-education. 8. Discharge planning will commence immediately. 9. Outpatient follow-up treatment will be strongly recommended. 10. The initial treatment plan will focus initially on: * Depression. * Risk for suicide. ESTIMATED LENGTH OF STAY: - DAYS. TIME SPENT COUNSELING AND COORDINATING INITIAL CARE: minutes. Vital Signs Vital Signs Date Time Temp Pulse Resp B/P (MAP) Pulse Ox O2 Delivery O2 Flow Rate FiO2 12/04/20 13:45 98.8 95 18 151/79 (103) Room Air 12/04/20 12:05 100 12/04/20 05:30 2.0 Laboratory Data 24H Labs Laboratory Tests 2 12/03/20 21:52: Urine Opiates Screen NEGATIVE, Urine Methadone Screen NEGATIVE, Urine Barbiturates Screen NEGATIVE, Urine Phencyclidine Screen NEGATIVE, Urine Amphetamines Screen NEGATIVE, Urine Benzodiazepines Screen NEGATIVE, Urine Cocaine Metabolite Screen NEGATIVE, Urine Cannabinoids Screen POSITIVEH 12/03/20 23:46: Nucleated Red Blood Cells % (auto) 0.0, Anion Gap 8, Glomerular Filtration Rate > 60.0, Calcium Level 9.3, Total Bilirubin 0.5, Direct Bilirubin 0.1, Aspartate Amino Transf (AST/SGOT) 17, Alanine Aminotransferase (ALT/SGPT) 31, Alkaline Phosphatase 61, Total Protein 7.5, Albumin 4.3, Albumin/Globulin Ratio 1.3, Thyroid Stimulating Hormone (TSH) 0.894, Salicylates Level 3.8L, Acetaminophen Level < 2.0L, Ethyl Alcohol Level 0.292H 12/04/20 05:40: Ethyl Alcohol Level 0.179H CBC/BMP Laboratory Tests 12/03/20 23:46 Medications No Active Prescriptions or Reported Meds Allergies Coded Allergies: No Known Allergies (Unverified , 07/03/19) MARCIN LAGUNAS MD Dec 04, 2020 16:50
[2020-12-04 16:59] VITALS: BP 136/68
[2020-12-04 17:18] VITALS: BP 136/68
[2020-12-04] MEDS: THIAMINE 100 MG TAB PO SCH (20:58)
[2020-12-05 06:59] VITALS: BP 128/63
[2020-12-05] MEDS: THIAMINE 100 MG TAB PO SCH ×2 (09:00→20:49)
[2020-12-05] MEDS: FOLIC ACID 1 MG TAB PO SCH (09:00)
[2020-12-05] MEDS: MULTIVITAMINS/MINERALS THERAP 1 TAB PO SCH (09:00)
--- NOTE | 2020-12-05 15:22 | IPNPDOC ---
Date Seen The patient was seen on 12/05/20. Progress Note I went to evaluate the patient today, but he refuses to see me. Please reconsult when patient is agreeable. VS, I&O, 24H, Fishbone Vital Signs/I&O Vital Signs Date Time Temp Pulse Resp B/P (MAP) Pulse Ox O2 Delivery O2 Flow Rate FiO2 12/05/20 06:59 99.0 66 20 128/63 (84) 96 Room Air 12/04/20 05:30 2.0 Laboratory Data Microbiology Microbiology 12/04/20 Respiratory Virus Panel (PCR) (LIZZIE) - Final, Complete NICANOR HODGES MD Dec 05, 2020 15:22
[2020-12-05 16:15] VITALS: BP 120/64
[2020-12-06 06:00] VITALS: BP 132/67
[2020-12-06 06:29] VITALS: BP 132/67
[2020-12-06] MEDS: MULTIVITAMINS/MINERALS THERAP 1 TAB PO SCH (08:42)
[2020-12-06] MEDS: THIAMINE 100 MG TAB PO SCH ×2 (08:42→20:37)
[2020-12-06] MEDS: FOLIC ACID 1 MG TAB PO SCH (08:42)
--- NOTE | 2020-12-06 11:34 | MHIPNPDOC ---
[facility] Progress Note Progress Note DATE OF SERVICE: 12/06/20 HISTORY: Patient under the influence of alcohol, cut his hands with knife. VITAL SIGNS: See below. NEW TEST RESULTS: None. CURRENT MEDICATIONS: See below. MENTAL STATUS EXAMINATION: Patient is a 30-year old male, who is, presenting with a history of alcohol and drug abuse, previous treatment and rehabilitation but has clearly relapsed leading to having played with knife and cut both of his hands. Speech: Is, normal. Language skills are intact. Thought processes including: Need for return to alcohol treatment. Thought content: As above. Abstract reasoning, and computation: Able to abstract. Description of associations: Looseness association. Description of abnormal or psychotic thoughts:, No psychotic thought. Judgment: Poor. Insight:, Poor. Orientation: 3. Recent and remote memory: Intact. Attention span and concentration: Intact. Language: No difficulties. Fund of knowledge: Full. Mood:, Euthymic. Affect:, Congruent. DIAGNOSES: 1. Alcohol and drug dependence. 2. Self-injurious behavior. 3. And. ASSESSMENT: As above MANAGEMENT PLAN:, Patient will begin outpatient alcohol and drug treatment. TIME SPENT: 30 minutes. Vital Signs Vital Signs Date Time Temp Pulse Resp B/P (MAP) Pulse Ox O2 Delivery O2 Flow Rate FiO2 12/06/20 06:29 98.8 56 16 132/67 (88) 98 Room Air 12/04/20 05:30 2.0 Current Medications Current Medications Medications (Trade) Dose Ordered Sig/Armen Route PRN Reason Start Time Stop Time Status Last Admin Dose Admin Acetaminophen (Tylenol Tab) 650 mg Q6HP PRN PO HEADACHE or DISCOMFORT 12/04/20 13:15 Al Hydrox/Mg Hydrox/Simethicone (Mylanta) 30 ml Q4HP PRN PO HEARTBURN/INDIGESTION 12/04/20 13:15 Folic Acid (Folic Acid) 1 mg DAILY PO 12/04/20 09:00 12/04/20 15:02 DC Folic Acid (Folic Acid) 1 mg DAILY PO 12/04/20 09:00 Home Med (Med Rec Complete!) ASDIRECTED XX 12/04/20 12:30 12/04/20 12:22 DC Lorazepam (Ativan) 2 mg ASDIRECTED PRN PO SEE PROTOCOL 12/04/20 06:30 12/04/20 15:03 DC Lorazepam (Ativan) 2 mg ASDIRECTED PRN PO SEE PROTOCOL 12/04/20 14:45 Magnesium Hydroxide (Milk Of Magnesia) 30 ml DAILYPRN PRN PO CONSTIPATION 12/04/20 13:15 Midazolam HCl (Versed) 2 mg STAT STAT IV 12/03/20 23:53 12/03/20 23:54 DC 12/04/20 00:01 Multivitamins (Theragram-M) 1 tab DAILY PO 12/04/20 09:00 12/04/20 15:03 DC Multivitamins (Theragram-M) 1 tab DAILY PO 12/04/20 09:00 Olanzapine (ZyPREXA ZYDIS) 5 mg Q6HP PRN PO ANXIETY/AGITATION 12/04/20 15:00 Thiamine HCl (Thiamine HCl) 100 mg BID PO 12/04/20 09:00 12/04/20 15:03 DC Thiamine HCl (Thiamine HCl) 100 mg BID PO 12/04/20 21:00 12/07/20 09:01 Trazodone HCl (Desyrel) 50 mg QHSP PRN PO INSOMNIA 12/04/20 13:15 Allergies Coded Allergies: No Known Allergies (Unverified , 07/03/19) MARCIN LAGUNAS MD Dec 06, 2020 11:34
[2020-12-06 16:22] VITALS: BP 123/65
[2020-12-06] MEDS: ACETAMINOPHEN TAB 650MG DOSE (2X325MG) PO PRN (20:27)
[2020-12-07 07:10] VITALS: BP 111/65
[2020-12-07] MEDS: FOLIC ACID 1 MG TAB PO SCH (08:25)
[2020-12-07] MEDS: MULTIVITAMINS/MINERALS THERAP 1 TAB PO SCH (08:25)
[2020-12-07] MEDS: THIAMINE 100 MG TAB PO SCH (08:26)
--- NOTE | 2020-12-07 14:12 | MHIPNPDOC ---
[facility] Progress Note Progress Note DATE OF SERVICE: 12/07/20 HISTORY: Patient under the influence of alcohol, cut his hands with knife. Patient is a 30 -year-old , male, who was admitted here in October following drug use in which she became paranoid, psychotic. Last night he was drinking and playing with a knife and states he cut himself by flipping the knife and cutting both hands and wrist. He is single and lives with his mother for over a year. VITAL SIGNS: See below. NEW TEST RESULTS: None. CURRENT MEDICATIONS: See below. MENTAL STATUS EXAMINATION: Patient is a 30-year old male, who is, presenting with a history of alcohol and drug abuse, previous treatment and rehabilitation but has clearly relapsed leading to having played with knife and cut both of his hands. Patient states that while he was inebriated he was playing with a knife and cut his hand. Speech: Is fluid, conversant, normal rate, tone and volume Language skills are intact Thought processes including: linear and goal oriented Thought content: denies depression and anxiety. Denies suicidal/homicidal id eation, planning or intent. Abstract reasoning, and computation: fair Description of associations: denies, none observed Description of abnormal or psychotic thoughts: denies, none observed. Judgment: fair Insight: fair Orientation: alert and oriented to person, place, time and situation Recent and remote memory: intact Attention span and concentration: good Language: expansive Fund of knowledge: average Mood: Euthymic Mood Affect: reactive DIAGNOSES: 1. Alcohol Induced Depressive Disorder 2. Alcohol Use Disorder 3. Cannabis Use Disorder 4. Self-injurious behavior. ASSESSMENT: Patient denies suicidal or homicidal ideation, denies depression and anxiety. He reports that he does not have auditory hallucinations, visual hallucinations and does not want rehab therapy. He states he wants to be discharged today, reinforced with patient that I will discharge him tomorrow MANAGEMENT PLAN:,will discharge tomorrow with no medications requested or continued. Patient has no home medications TIME SPENT: 30 minutes. TIME SPENT: minutes. Vital Signs Vital Signs Date Time Temp Pulse Resp B/P (MAP) Pulse Ox O2 Delivery O2 Flow Rate FiO2 12/07/20 07:10 97.9 54 14 111/65 (80) 98 Room Air 12/04/20 05:30 2.0 Current Medications Current Medications Medications (Trade) Dose Ordered Sig/Armen Route PRN Reason Start Time Stop Time Status Last Admin Dose Admin Acetaminophen (Tylenol Tab) 650 mg Q6HP PRN PO HEADACHE or DISCOMFORT 12/04/20 13:15 12/06/20 20:27 Al Hydrox/Mg Hydrox/Simethicone (Mylanta) 30 ml Q4HP PRN PO HEARTBURN/INDIGESTION 12/04/20 13:15 Folic Acid (Folic Acid) 1 mg DAILY PO 12/04/20 09:00 12/04/20 15:02 DC Folic Acid (Folic Acid) 1 mg DAILY PO 12/04/20 09:00 Home Med (Med Rec Complete!) ASDIRECTED XX 12/04/20 12:30 12/04/20 12:22 DC Lorazepam (Ativan) 2 mg ASDIRECTED PRN PO SEE PROTOCOL 12/04/20 06:30 12/04/20 15:03 DC Lorazepam (Ativan) 2 mg ASDIRECTED PRN PO SEE PROTOCOL 12/04/20 14:45 Magnesium Hydroxide (Milk Of Magnesia) 30 ml DAILYPRN PRN PO CONSTIPATION 12/04/20 13:15 Midazolam HCl (Versed) 2 mg STAT STAT IV 12/03/20 23:53 12/03/20 23:54 DC 12/04/20 00:01 Multivitamins (Theragram-M) 1 tab DAILY PO 12/04/20 09:00 12/04/20 15:03 DC Multivitamins (Theragram-M) 1 tab DAILY PO 12/04/20 09:00 Olanzapine (ZyPREXA ZYDIS) 5 mg Q6HP PRN PO ANXIETY/AGITATION 12/04/20 15:00 Thiamine HCl (Thiamine HCl) 100 mg BID PO 12/04/20 09:00 12/04/20 15:03 DC Thiamine HCl (Thiamine HCl) 100 mg BID PO 12/04/20 21:00 12/07/20 09:01 DC Trazodone HCl (Desyrel) 50 mg QHSP PRN PO INSOMNIA 12/04/20 13:15 12/06/20 20:27 Allergies Coded Allergies: No Known Allergies (Unverified , 07/03/19) THAIS CHURCH NP Dec 07, 2020 14:10
[2020-12-07 18:19] VITALS: BP 139/63
[2020-12-07] MEDS: ACETAMINOPHEN TAB 650MG DOSE (2X325MG) PO PRN (20:22)
[2020-12-08 06:00] VITALS: BP 115/71
[2020-12-08] MEDS: MULTIVITAMINS/MINERALS THERAP 1 TAB PO SCH (08:20)
[2020-12-08] MEDS: FOLIC ACID 1 MG TAB PO SCH (08:20)
[2020-12-08] MEDS: ACETAMINOPHEN TAB 650MG DOSE (2X325MG) PO PRN (08:20)
--- NOTE | 2020-12-08 09:19 | MHDSPDOC ---
[facility] Discharge Summary Discharge Summary DATE OF ADMISSION: Dec 04, 2020 at 13:04 DATE OF DISCHARGE: Dec 08, 2020 at 0915 DISCHARGE DIAGNOSES: 1. Alcohol Induced Depressive Disorder 2. Alcohol Use Disorder 3. Cannabis Use Disorder 4. Self-injurious behavior. REASON FOR ADMISSION: Patient is a 30 year old single, unemployed, domiciled Male who was admitted to [facility] for probable suicide gesture. He reports that under the influence of alcohol, cut his hands with knife. Patient is a 30 -year-old , male, who was admitted here in October following drug use in which he became paranoid, psychotic. Last night he was drinking and playing with a knife and states he cut himself by flipping the knife and cutting both hands and wrist. He is single and lives with his mother for over a year. CONSULTANTS INVOLVED: Medical H + P TREATMENT AND PROGRESS ON THE UNIT: Patient was admitted to the [facility] on a 9.39 legal status he was afforded the following treatment modalities: 1) Individual Therapy 2) Group Therapy 3) Medication Management 4) Milieu Therapy 5) Safe Environment HOSPITAL COURSE: Patient was admitted to [facility] on 12/04/20 on a 9.39 legal status, he is being discharged today. While admitted patient was cooperative with treatment plan, he was not requesting any pharmacological treatment and minimally participated in other treatments. He is being discharged today as he reports no depression, suicidal/homicidal ideation, planning or intent and is not presenting with psychotic symptoms. DISCHARGE ASSESSMENT: DISCHARGE ASSESSMENT: In today's interview, patient is alert and oriented, pts dress is appropriate. Hygiene and grooming is well- kempt. Smiles on approach and is pleasant and engaged in the interview. Denies depression and anxiety. Denies suicidal and homicidal ideation, planning or intent. Denies and is not observed with francisco javier, psychotic symptoms of delusions, bizarre thinking, obsessions, paranoia, ruminations illogical thoughts, flight of ideas or having poor insight and judgement. Patient has normal mentation, declines further hospitalization on a voluntary status and meets criteria for discharge today. Patient encouraged to return to hospital if his symptoms worsen or change and encouraged to call unit if he/she/they needs to speak to arlet fernandez for questions regarding medications or care. MENTAL STATUS EXAMINATION ON DISCHARGE: Patient is a 30-year old male, who is, presenting with a history of alcohol and drug abuse, previous treatment and rehabilitation but has clearly relapsed leading to having played with knife and cut both of his hands. Patient states that while he was inebriated he was playing with a knife and cut his hand. Speech: Is fluid, conversant, normal rate, tone and volume Language skills are intact Thought processes including: linear and goal oriented Thought content: denies depression and anxiety. Denies suicidal/homicidal ideation, planning or intent. Abstract reasoning, and computation: fair Description of associations: denies, none observed Description of abnormal or psychotic thoughts: denies, none observed. Judgment: fair Insight: fair Orientation: alert and oriented to person, place, time and situation Recent and remote memory: intact Attention span and concentration: good Language: expansive Fund of knowledge: average Mood: Euthymic Mood Affect: reactive MEDICATIONS ON DISCHARGE: No medications, although in the discharge interview, patient reports wanting to get pain medications for his left hand with 4-5 sutures, states "Tylenol is not cutting it." PLAN/FOLLOWUP ARRANGEMENTS: [facility] The amount of time spent in the coordination of care for this patient was approximately minutes. Vital Signs/I&Os Vital Signs Date Time Temp Pulse Resp B/P (MAP) Pulse Ox O2 Delivery O2 Flow Rate FiO2 12/08/20 06:00 98.7 60 16 115/71 (86) 12/07/20 07:10 98 Room Air 12/04/20 05:30 2.0 Laboratory Data Microbiology Microbiology 12/04/20 Respiratory Virus Panel (PCR) (LIZZIE) - Final, Complete Medications No Active Prescriptions or Reported Meds Allergies Coded Allergies: No Known Allergies (Unverified , 07/03/19) THAIS CHURCH NP Dec 08, 2020 09:15
[2020-12-08] MEDS ORDERED: AUGM875T28 PO (17:41)
== END 2020-12-08 12:15 | disposition home or self-care (01) | DRG 775 ==
LOC: M ED 21:06 → M ED INP 12-04 13:04 → M PSY 12-04 13:50
PROVIDERS: ADMIT Psychiatry & Neurology Child & Adolescent Psychiatry; ATTEND Psychiatry & Neurology Psychiatry
DX: F10.14 Alcohol abuse with alcohol-induced mood disorder (principal); R45.851 Suicidal ideations; F12.90 Cannabis use, unspecified, uncomplicated

== ENCOUNTER 2020-12-08 17:06 | Emergency (ER) | payer OTHER ==
[~2020-12-08] VITALS: Ht 185.4 cm; Wt 34.1 kg
[2020-12-08 17:06] VITALS: BP 156/78
[2020-12-08] MEDS ORDERED: AUGM875T28 PO (17:41)
== END 2020-12-08 17:48 | disposition home or self-care (01) ==
LOC: M ED 17:06
DX: L03.114 Cellulitis of left upper limb (principal); S61.412D Laceration without foreign body of left hand, subsequent encounter; X58.XXXD Exposure to other specified factors, subsequent encounter; Y92.89 Other specified places as the place of occurrence of the external cause; F15.10 Other stimulant abuse, uncomplicated; Z88.8 Allergy status to other drugs, medicaments and biological substances; F17.210 Nicotine dependence, cigarettes, uncomplicated

== ENCOUNTER 2020-12-13 11:17 | Emergency (ER) | payer OTHER ==
[~2020-12-13] VITALS: Ht 182.9 cm; Wt 73.9 kg
[~2020-12-13 11:17] MED LIST changes: +AUGM875T28 PO
[2020-12-13] MEDS ORDERED: LIDOCAINE 1% MDV 20ML VIAL As Ordered ONE (12:00)
[2020-12-13] MEDS ORDERED: LIDOCAINE 1% MDV 20ML VIAL SC ONE (12:15)
[2020-12-13 12:18] VITALS: BP 119/81
== END 2020-12-13 12:26 | disposition home or self-care (01) ==
LOC: M ED 11:17
DX: Z48.02 Encounter for removal of sutures (principal); F15.10 Other stimulant abuse, uncomplicated; F17.210 Nicotine dependence, cigarettes, uncomplicated; Z88.8 Allergy status to other drugs, medicaments and biological substances

== ENCOUNTER 2021-03-03 00:30 | Emergency (ER) | payer OTHER ==
[~2021-03-03] VITALS: Ht 182.9 cm; Wt 73.9 kg
[~2021-03-03 00:30] MED LIST changes: +BACTDSTA PO; -SULF1TAB93 PO
[2021-03-03] MEDS ORDERED: HALOPERIDOL 5MG/ML VIAL (J1630 PER 1) As Ordered ONE (00:44)
[2021-03-03] MEDS ORDERED: diphenhydrAMINE 50MG/ML VIAL (J1200) As Ordered ONE (00:44)
[2021-03-03] MEDS ORDERED: LORazepam 2 MG/ML VIAL IM ONE (00:45)
[2021-03-03] MEDS ORDERED: LORazepam 2 MG/ML VIAL As Ordered ONE (00:45)
[2021-03-03] MEDS ORDERED: NS 1,000 ML IV ONE ×2 (00:45→02:35)
[2021-03-03] MEDS ORDERED: HALOPERIDOL 5MG/ML VIAL (J1630 PER 1) IM ONE (00:45)
[2021-03-03] MEDS ORDERED: diphenhydrAMINE 50MG/ML VIAL (J1200) IM ONE (00:45)
[2021-03-03 01:18] LABS: BASO # 0.1 10^3/uL (0.0-0.2); BASO % 0.9 % (0.0-1.0); EOS # 0.1 10^3/uL (0.0-0.5); EOS % 0.3 % (0.0-3.0); HEMATOCRIT 46.6 % (42.0-52.0); HEMOGLOBIN 15.8 g/dl (13.5-17.5); LYMPH # 2.8 10^3/uL (1.5-5.0); LYMPH % 17.3 % (24.0-44.0); MEAN CORPUSCULAR HEMOGLOBIN 30.3 pg (27.0-33.0); MEAN CORPUSCULAR HGB CONC 33.9 g/dl (32.0-36.5); MEAN CORPUSCULAR VOLUME 89.3 fl (80.0-96.0); MONO # 1.2 10^3/uL (0.0-0.8); MONO % 7.5 % (2.0-8.0); NEUTROPHILS % 73.2 % (36.0-66.0); PLATELET COUNT, AUTOMATED 226 10^3/uL (150-450); RED BLOOD COUNT 5.22 10^6/uL (4.30-6.10); WHITE BLOOD COUNT 16.3 10^3/uL (4.0-10.0)
[2021-03-03 01:58] LABS: AMPHETAMINES LEVEL URINE NEGATIVE (NEGATIVE); BARBITURATES URINE NEGATIVE (NEGATIVE); BENZODIAZEPINES URINE NEGATIVE (NEGATIVE); CANNABINOIDS URINE POSITIVE (NEGATIVE); COCAINE METABOLITE URINE NEGATIVE (NEGATIVE); METHADONE URINE NEGATIVE (NEGATIVE); OPIATES URINE NEGATIVE (NEGATIVE); PHENCYCLIDINE URINE NEGATIVE (NEGATIVE)
[2021-03-03 02:06] LABS: ACETAMINOPHEN LEVEL < 2.0 UG/ML (10.0-30.0); ALBUMIN 4.8 GM/DL (3.2-5.2); ALT/SGPT 45 U/L (12-78); BILIRUBIN,DIRECT 0.2 MG/DL (0.0-0.2); BILIRUBIN,TOTAL 0.5 MG/DL (0.2-1.0); BLOOD UREA NITROGEN 13 MG/DL (7-18); CALCIUM LEVEL 8.4 MG/DL (8.5-10.1); CARBON DIOXIDE LEVEL 20 MEQ/L (21-32); CHLORIDE LEVEL 106 MEQ/L (98-107); CREATININE FOR GFR 1.07 MG/DL (0.70-1.30); ETHYL ALCOHOL (ETHANOL) 0.355 % (0.000-0.010); GLOMERULAR FILTRATION RATE > 60.0 (>60); GLUCOSE, FASTING 104 MG/DL (70-100); POTASSIUM SERUM 3.9 MEQ/L (3.5-5.1); SALICYLATE LEVEL 5.1 MG/DL (5.0-30.0); SODIUM LEVEL 139 MEQ/L (136-145); THYROID STIMULATING HORMONE 0.466 uIU/ML (0.358-3.740); TOTAL PROTEIN 7.9 GM/DL (6.4-8.2)
[2021-03-03] MEDS: LORazepam 2 MG/ML VIAL IV STA ×2 (02:29→02:56)
[2021-03-03] MEDS ORDERED: LORazepam 2 MG/ML VIAL IV STA (03:51)
--- NOTE | 2021-03-03 05:03 | ECGEPIP ---
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
--- NOTE | 2021-03-03 05:45 | REPVR ---
PROCEDURE INFORMATION: Exam: CT Head Without Contrast Exam date and time: 03/03/2021 2:05 AM Age: 30 years old Clinical indication: Other: ETOH; Additional info: AMS TECHNIQUE: Imaging protocol: Computed tomography of the head without contrast. Radiation optimization: All CT scans at this facility use at least one of these dose optimization techniques: automated exposure control; mA and/or kV adjustment per patient size (includes targeted exams where dose is matched to clinical indication); or iterative reconstruction. COMPARISON: CT Head without contrast 10/29/2020 11:52 AM FINDINGS: Brain: Normal. No hemorrhage. Unremarkable white matter. No mass effect. Cerebral ventricles: No ventriculomegaly. Bones/joints: Unremarkable. No acute fracture. Paranasal sinuses: Mild mucosal thickening of the ethmoidal air cells. No fluid levels. Mastoid air cells: Visualized mastoid air cells are well aerated. Soft tissues: Unremarkable. IMPRESSION: No acute intracranial abnormality. Electronically signed by: Anushka Silveira On 03/03/2021 05:45:24 AM
--- NOTE | 2021-03-03 05:46 | REPVR ---
PROCEDURE INFORMATION: Exam: CT Cervical Spine Without Contrast Exam date and time: 03/03/2021 2:05 AM Age: 30 years old Clinical indication: Other: ETOH; Additional info: AMS TECHNIQUE: Imaging protocol: Computed tomography images of the cervical spine without contrast. Radiation optimization: All CT scans at this facility use at least one of these dose optimization techniques: automated exposure control; mA and/or kV adjustment per patient size (includes targeted exams where dose is matched to clinical indication); or iterative reconstruction. COMPARISON: No relevant prior studies available. FINDINGS: Bones/joints: No acute fracture. Normal alignment. Discs/Spinal canal/Neural foramina: No significant disc protrusion. No severe spinal canal stenosis. No significant neural foraminal narrowing. Lungs: Lung apices are normal. Soft tissues: Unremarkable. IMPRESSION: No acute findings. Electronically signed by: Anushka Silveira On 03/03/2021 05:46:36 AM
[2021-03-03] MEDS ORDERED: LORazepam 2 MG TAB PO PRN (05:55)
[2021-03-03] MEDS ORDERED: THIAMINE 100 MG TAB PO SCH (05:56)
[2021-03-03] MEDS ORDERED: FOLIC ACID 1 MG TAB PO SCH (09:00)
[2021-03-03] MEDS ORDERED: MULTIVITAMINS/MINERALS THERAP 1 TAB PO SCH (09:00)
[2021-03-03 18:50] VITALS: BP 132/80
== END 2021-03-03 19:00 | disposition home or self-care (01) ==
LOC: M ED 00:30
DX: Z04.6 Encounter for general psychiatric examination, requested by authority (principal); F10.129 Alcohol abuse with intoxication, unspecified; Z88.5 Allergy status to narcotic agent
CPT/HCPCS: 51701; 70450; 72125; 80048; 80076; 80143; 80307; 82077; 84443; 85025; 93005; 93041; 94760; 96372; 96374; 96376; 99285; J1200; J1630; J2060

== ENCOUNTER 2021-04-01 17:45 | Emergency (ER) | payer OTHER ==
[~2021-04-01] VITALS: Ht 185.4 cm; Wt 80.9 kg
--- NOTE | 2021-04-01 20:25 | REPVR ---
PROCEDURE INFORMATION: Exam: CT Head Without Contrast Exam date and time: 04/01/2021 7:44 PM Age: 30 years old Clinical indication: Injury or trauma; Fall; Blunt trauma (contusions or hematomas) TECHNIQUE: Imaging protocol: Computed tomography of the head without contrast. Radiation optimization: All CT scans at this facility use at least one of these dose optimization techniques: automated exposure control; mA and/or kV adjustment per patient size (includes targeted exams where dose is matched to clinical indication); or iterative reconstruction. COMPARISON: CT Head without contrast 03/03/2021 5:29 AM FINDINGS: Brain: Normal. No hemorrhage. Unremarkable white matter. No mass effect. Cerebral ventricles: No ventriculomegaly. Paranasal sinuses: Visualized sinuses are unremarkable. No fluid levels. Mastoid air cells: Visualized mastoid air cells are well aerated. Bones/joints: Unremarkable. No acute fracture. Soft tissues: Unremarkable. IMPRESSION: No acute intracranial abnormality. Electronically signed by: Kolton Cavanaugh On 04/01/2021 20:25:21 PM
--- NOTE | 2021-04-01 20:31 | REPVR ---
PROCEDURE INFORMATION: Exam: CT Maxillofacial Without Contrast Exam date and time: 04/01/2021 7:44 PM Age: 30 years old Clinical indication: Injury or trauma; Fall; Blunt trauma (contusions or hematomas); Nose TECHNIQUE: Imaging protocol: Computed tomography images of the face without contrast. Radiation optimization: All CT scans at this facility use at least one of these dose optimization techniques: automated exposure control; mA and/or kV adjustment per patient size (includes targeted exams where dose is matched to clinical indication); or iterative reconstruction. COMPARISON: CT Head without contrast 03/03/2021 5:29 AM FINDINGS: Orbital cavity: Orbits are normal. Globes are unremarkable. Bones/joints: No acute fracture. Paranasal sinuses: Normal. No air-fluid levels. Soft tissues: Mild edema of the right pre maxillary space. Large laceration in the right pre maxillary space. Laceration in the left frontal scalp. IMPRESSION: No acute fracture. Electronically signed by: Kolton Cavanaugh On 04/01/2021 20:31:07 PM
[2021-04-01] MEDS ORDERED: LIDOCAINE 1% MDV 20ML VIAL SC ONE (20:40)
[2021-04-01] MEDS ORDERED: ceFAZolin SOD 2 GM in IV 1 EA IV ONE (22:05)
--- NOTE | 2021-04-01 22:09 | ED PDOC ---
Report of Operation DATE OF PROCEDURE: 04/01/21 PREPROCEDURE DIAGNOSES: [Right facial laceration]. POSTPROCEDURE DIAGNOSES: [Same]. PROCEDURE: [Repair of right facial laceration]. SURGEON: [Manjeet Crowell MD BATCH ANALYST: MD ANESTHESIA: [Local]. ESTIMATED BLOOD LOSS: Approximately [5 mL] mL. COMPLICATIONS: [9]. REMARKS: . PROCEDURE NOTE: Emiliano is a 30-year-old gentleman who came to the emergency room after being struck by a tree branch. He was seen by the emergency staff and diagnosed with a laceration of the left eyebrow and right cheek. A CT scan was done which showed no evidence of a facial fracture. The left eyebrow was repaired by the ER staff. I was asked to come in because of the size of the right cheek laceration. Patient had no loss of consciousness. On exam, he had a large laceration of the right cheek, approximately 5 or 6 cm in a C-shaped fashion. This extended to the bony maxilla. Sensation and facial movements were intact. We recommended he undergo a 2 layer repair. They consented. They understand that. Plastic surgery was not available [facility] and that we are also trained and repair of facial lacerations. The wound was injected with 1% lidocaine and epinephrine. The wound was thoroughly washed out. This was closed in 2 layers, the first layer was a 4-0 Vicryl suture placed in an interrupted fashion. The skin was closed with interrupted 5-0 Prolene suture. Patient tolerated the procedure well. There were no complications. He was instructed to keep bacitracin ointment on this area for the next week. He will follow up in 1 week for suture removal in the ENT clinic. We recommended that the ER staff provide him with the prescription for Augmentin 875 by mouth twice a day for 10 days. He should keep incision dry for 48 hours. ER staff will provide pain medication. Total length of the incision, 5-1/2 cm.]. DESCRIPTION OF PROCEDURE: . Manjeet Crowell MD Apr 01, 2021 22:09
[2021-04-01] MEDS ORDERED: AUGM875T28 PO (22:15)
[2021-04-01] MEDS ORDERED: OXYCODONE/APAP 5MG/325MG(BULK FOR ED) 1 TABLET PO ONE (22:50)
[2021-04-01 23:09] VITALS: BP 130/74
== END 2021-04-01 23:13 | disposition home or self-care (01) ==
LOC: M ED 17:45
DX: S01.81XA Laceration without foreign body of other part of head, initial encounter (principal); W22.8XXA Striking against or struck by other objects, initial encounter; Y92.018 Other place in single-family (private) house as the place of occurrence of the external cause; Z88.5 Allergy status to narcotic agent; F15.10 Other stimulant abuse, uncomplicated; F17.210 Nicotine dependence, cigarettes, uncomplicated
CPT/HCPCS: 12014; 70450; 70486; 96365; 99284; J0690